=== PATIENT | male | born 1970 | race Caucasian/White ===

== ENCOUNTER 2020-12-17 17:04 | Emergency (ER) | payer BC ==
[~2020-12-17] VITALS: Ht 182.9 cm; Wt 122.5 kg
[~2020-12-17 17:04] MED LIST: BENZ100A PO; HUMULIN R; HYDACE5 PO; INSR10I; INSULANI; Mucinex600 MG PO
== END 2020-12-17 19:22 | disposition home or self-care (01) ==
LOC: ER 17:04
DX: U07.1 COVID-19 (principal)
CPT/HCPCS: 99284

== ENCOUNTER 2020-12-19 06:55 | Emergency (ER) | payer BC ==
[~2020-12-19] VITALS: Ht 182.9 cm; Wt 122.5 kg
== END 2020-12-19 08:04 | disposition home or self-care (01) ==
LOC: ER 06:55
DX: U07.1 COVID-19 (principal); E11.9 Type 2 diabetes mellitus without complications; Z79.4 Long term (current) use of insulin
CPT/HCPCS: 99284